=== PATIENT | male | born 1990 | race American Indian/Alaskan Native ===

== ENCOUNTER 2021-04-12 11:28 | Emergency (ER) | payer SELFPAY ==
[2021-04-12 11:50] VITALS: BP 127/84
--- NOTE | 2021-04-12 13:07 | XRay Report ---
LUMBAR SPINE 3 VIEWS INDICATION / CLINICAL INFORMATION: back pain. 4 foot fall. COMPARISON: None available. FINDINGS: VERTEBRAE: No acute fracture. No significant malalignment. DISC SPACES / FACET JOINTS:No significant abnormality. PARASPINAL SOFT TISSUES:No significant abnormality. ADDITIONAL FINDINGS: None. Signer Name: Javier Hunter MD Signed: 04/12/2021 1:02 PM Workstation Name: [id number]
--- NOTE | 2021-04-12 13:11 | XRay Report ---
RIGHT ANKLE 3 VIEW(S) INDICATION / CLINICAL INFORMATION: rt ankle pain status post 4 foot fall. Swelling. COMPARISON: None available. FINDINGS: BONES / JOINT(S): No acute fracture or subluxation. No significant arthritis. SOFT TISSUES: No significant abnormality. ADDITIONAL FINDINGS: None. Signer Name: Javier Hunter MD Signed: 04/12/2021 1:06 PM Workstation Name: [id number]
[2021-04-12] MEDS ORDERED: traMADol 50 MG TAB PO ONE (13:35)
[2021-04-12] MEDS ORDERED: KETOROLAC 60 MG/2 ML INJ IM ONE (13:35)
--- NOTE | 2021-04-12 13:36 | Emergency Department Report ---
ED Fall HPI - General Chief Complaint: Fall Stated Complaint: ANKLE AND BACK PAIN FROM WORK Time Seen by Provider: 04/12/21 13:26 Source: patient Mode of arrival: Ambulatory - History of Present Illness Initial Comments: 31-year-old male presents to the ER today with complaints of right ankle pain and lower back pain after accidental fall at work yesterday. Patient states that he was unloading a truck, and he was walking around a palate when he missed stepped and fell backwards. He states that the dock was about 4 foot high, but he did not fall completely onto the ground he states that his foot got caught on one of the latch of the truck and he was just hanging off the dock. He states that he fell backward and onto his right side. He states that he had some pain at the time of the accident but most of his pain was when he woke up this morning. She reports increased pain with movement of his back and with movement of his ankle as well as ambulation and weightbearing. He states that he is not taking any thing for the pain. He denies any head injury. He reports no chest pain, abdominal pain, neck pain or any other symptoms at this time. -: days(s) (1) - Related Data Previous Rx's Medication Instructions Recorded Last Taken Type Ketorolac [Toradol] 10 mg PO Q6H PRN #20 tablet 04/12/21 Unknown Rx traMADoL [Ultram] 50 mg PO Q4HR PRN #12 tablet 04/12/21 Unknown Rx Allergies Allergy/AdvReac Type Severity Reaction Status Date / Time No Known Allergies Allergy Unverified 04/12/21 11:46 ED Review of Systems ROS: Stated complaint: ANKLE AND BACK PAIN FROM WORK Other details as noted in HPI Comment: All other systems reviewed and negative Constitutional: denies: chills, fever Eyes: denies: eye pain, eye discharge, vision change ENT: denies: ear pain, throat pain, dental pain, hearing loss, epistaxis, congestion Respiratory: denies: cough, shortness of breath, SOB with exertion, SOB at rest, wheezing Cardiovascular: denies: chest pain, palpitations, dyspnea on exertion, edema, syncope Gastrointestinal: denies: abdominal pain, nausea, vomiting, diarrhea, constipation, hematemesis, melena, hematochezia Genitourinary: denies: dysuria, frequency, hematuria, discharge, testicular pain, testicular mass Musculoskeletal: back pain, joint swelling, arthralgia Skin: denies: rash, lesions Neurological: denies: headache, weakness, paresthesias, confusion, abnormal gait, vertigo Psychiatric: denies: anxiety, depression, auditory hallucinations, visual hallucinations, homicidal thoughts, suicidal thoughts ED Past Medical Hx - Past Medical History Previous Medical History?: No - Surgical History Past Surgical History?: No - Medications Home Medications: Home Medications Medication Instructions Recorded Confirmed Last Taken Type Ketorolac [Toradol] 10 mg PO Q6H PRN #20 tablet 04/12/21 Unknown Rx traMADoL [Ultram] 50 mg PO Q4HR PRN #12 tablet 04/12/21 Unknown Rx ED Physical Exam - General Limitations: No Limitations General appearance: alert, in no apparent distress - Head Head exam: Present: atraumatic, normocephalic, normal inspection - Eye Eye exam: Present: normal appearance, PERRL, EOMI Pupils: Present: normal accommodation - ENT ENT exam: Present: normal exam, mucous membranes moist - Neck Neck exam: Present: normal inspection, full ROM - Respiratory Respiratory exam: Present: normal lung sounds bilaterally. Absent: respiratory distress - Cardiovascular Cardiovascular Exam: Present: regular rate, normal rhythm, normal heart sounds - Expanded Lower Extremity Exam Right Ankle exam: Present: normal inspection (Mild swelling to the right ankle), tenderness (Diffuse tenderness to the right ankle), swelling. Absent: full ROM (Range of motion of the ankle moderately reduced due to pain), abrasion, laceration, ecchymosis, deformity, crepidus, dislocation, erythema Foot/Toe exam: Present: normal inspection Neuro vascular tendon exam: Present: no vascular compromise Gait: Positive: observed and limited by pain - Back Exam Back exam: Present: paraspinal tenderness (Right lower lumbar area), vertebral tenderness (Lower lumbar spine) - Neurological Exam Neurological exam: Present: alert, oriented X3, CN II-XII intact - Psychiatric Psychiatric exam: Present: normal affect, normal mood ED Course Vital Signs 04/12/21 11:49 Temperature 99.1 F Pulse Rate 72 Respiratory 18 Rate Blood Pressure 127/84 O2 Sat by Pulse 96 Oximetry ED Medical Decision Making - Radiology Data Radiology results: report reviewed Patient: JES CARRION MR#: [id number] : 1990 Acct:[id number] Age/Sex: 31 / M ADM Date: 04/12/21 Loc: ED Attending Dr: Ordering Physician: SOCORRO HOWE Date of Service: 04/12/21 Procedure(s): XR spine lumbosacral 2-3V Accession Number(s): [id number] cc: SOCORRO HOWE Fluoro Time In Minutes: LUMBAR SPINE 3 VIEWS INDICATION / CLINICAL INFORMATION: back pain. 4 foot fall. COMPARISON: None available. FINDINGS: VERTEBRAE: No acute fracture. No significant malalignment. DISC SPACES / FACET JOINTS:No significant abnormality. PARASPINAL SOFT TISSUES:No significant abnormality. ADDITIONAL FINDINGS: None. Signer Name: Javier Hunter MD Signed: 04/12/2021 1:02 PM Workstation Name: [id number] Transcribed By: DT Dictated By: Adriel Hunter MD Electronically Authenticated By: Adriel Hunter MD Signed Date/Time: 04/12/21 130 DD/ 01 TD/TT: Patient: JES CARRION MR#: [id number] : 1990 Acct:[id number] Age/Sex: 31 / M ADM Date: 04/12/21 Loc: ED Attending Dr: Ordering Physician: SOCORRO HOWE Date of Service: 04/12/21 Procedure(s): XR ankle 3+V RT Accession Number(s): [id number] cc: SOCORRO HOWE Fluoro Time In Minutes: RIGHT ANKLE 3 VIEW(S) INDICATION / CLINICAL INFORMATION: rt ankle pain status post 4 foot fall. Swelling. COMPARISON: None available. FINDINGS: BONES / JOINT(S): No acute fracture or subluxation. No significant arthritis. SOFT TISSUES: No significant abnormality. ADDITIONAL FINDINGS: None. Signer Name: Javier Hunter MD Signed: 04/12/2021 1:06 PM Workstation Name: [id number] Transcribed By: DT Dictated By: Adriel Hunter MD Electronically Authenticated By: Adriel Hunter MD Signed Date/Time: 04/12/21 1306 DD/ 04 TD/TT: Critical care attestation.: If time is entered above; I have spent that time in minutes in the direct care of this critically ill patient, excluding procedure time. ED Disposition Clinical Impression: Lumbar strain, Ankle sprain Disposition: - TO HOME OR SELFCARE Is pt being admited?: No Does the pt Need Aspirin: No Condition: Stable Instructions: Lumbosacral Strain, Ankle Sprain Additional Instructions: I recommend rest, ice and elevating leg as often as possible for the next couple days. Take the Toradol as prescribed. Follow-up with cardiology specialist in 1 week if your symptoms persist. Prescriptions: Ketorolac [Toradol] 10 mg PO Q6H PRN #20 tablet PRN Reason: Pain traMADoL [Ultram] 50 mg PO Q4HR PRN #12 tablet PRN Reason: Pain Referrals: JOHN ZHANG MD [Staff Physician] - 3-5 Days Forms: Work/School Release Form(ED) Time of Disposition: 14:20
== END 2021-04-12 14:42 | disposition home or self-care (01) ==
LOC: ED 11:28
DX: S93.491A Sprain of other ligament of right ankle, initial encounter (principal); S39.012A Strain of muscle, fascia and tendon of lower back, initial encounter; W18.39XA Other fall on same level, initial encounter; Y93.89 Activity, other specified; Y92.89 Other specified places as the place of occurrence of the external cause; Y99.8 Other external cause status
CPT/HCPCS: 72100; 73610; 99283; J1885